=== PATIENT | female | born 1960 | race Caucasian/White ===

== ENCOUNTER 2024-02-17 12:51 | Day surgery (SDC) | payer OTHER ==
[~2024-02-17] VITALS: Ht 157.5 cm; Wt 75.4 kg
[~2024-02-17 12:51] MED LIST: Lactated Ringer's 1,000 ML IV ONE; propofoL 50 ML IV ONE
[2024-02-17] MEDS ORDERED: ATOR10 (13:33)
[2024-02-17] MEDS ORDERED: GABA300 (13:33)
[2024-02-17] MEDS ORDERED: ALPR.5 (13:33)
[2024-02-17] MEDS ORDERED: CITALOPRAM HBR10 MG (13:34)
[2024-02-17] MEDS ORDERED: FENO48 (13:35)
[2024-02-17] MEDS ORDERED: LOSA50 (13:35)
[2024-02-17] MEDS ORDERED: METO25ER (13:35)
[2024-02-17] MEDS ORDERED: VITAMIN B122500 MC1 (13:36)
[2024-02-17] MEDS ORDERED: VIT D2-K1 20-1259 ML (13:36)
[2024-02-17] MEDS ORDERED: Lactated Ringer's 1,000 ML IV ONE (14:21)
[2024-02-17 15:10] VITALS: BP 122/66
== END 2024-02-17 15:15 | disposition home or self-care (01) ==
LOC: ORSCSDS 12:51
PROVIDERS: Surgery
PROC: 0DJD8ZZ Inspection of Lower Intestinal Tract, Via Natural or Artificial Opening Endoscopic (ICD-10-PCS; principal; 2024-02-17 14:15)
DX: Z12.11 Encounter for screening for malignant neoplasm of colon (principal); E78.2 Mixed hyperlipidemia; I10 Essential (primary) hypertension; Z79.899 Other long term (current) drug therapy
CPT/HCPCS: J2704; J7120